=== PATIENT | male | born 1980 | race African-American/Black ===

== ENCOUNTER 2016-10-25 14:39 | Inpatient (IN) | payer SELFPAY ==
[~2016-10-25] VITALS: Ht 170.2 cm; Wt 66.7 kg
[2016-10-25] MEDS ORDERED: LORAZEPAM 2MG/ML CPJ IM STA (14:44)
[2016-10-25] MEDS ORDERED: OLANZAPINE 10 MG/VIAL IM STA (14:44)
[2016-10-25] MEDS ORDERED: SODIUM CHLORIDE 0.9% 1,000 ML IV ONE (14:47)
[2016-10-25] MEDS ORDERED: OLANZAPINE 10 MG/VIAL IM ONE (14:50)
[2016-10-25] MEDS ORDERED: LORAZEPAM 2MG/ML CPJ ONE (14:51)
[2016-10-25 15:24] LABS: HEMATOCRIT. 42.1 % (42.0-52.0); HEMOGLOBIN. 14.3 g/dL (14.0-18.0); MEAN CORPUSCULAR HEMOGLOBIN 32.2 pg (28.0-32.0); MEAN CORPUSCULAR VOLUME 95.3 fL (80.0-94.0); MEAN PLATELET VOLUME 8.3 fl (7.4-10.4); PLATELET 143 x1000/uL (130-400); RED BLOOD CELL COUNT 4.42 mill/uL (4.7-6.1); RED CELL DISTRIBUTION WIDTH 13.3 % (11.6-14.6)
[2016-10-25 15:33] LABS: CHLORIDE 110 mEq/L (98-107)
[2016-10-25 15:36] LABS: CARBON DIOXIDE 19 mEq/L (21-32); ETHANOL BLOOD < 10 mg/dL
[2016-10-25 15:39] LABS: CREATINE KINASE 545 IU/L (39-308)
[2016-10-25 15:56] LABS: ATYPICAL LYMPHOCYTES 2
[2016-10-25 15:58] LABS: PLATELET ESTIMATE NORMAL
[2016-10-25 16:11] LABS: CLARITY URINE CLEAR (CLEAR); COLOR URINE YELLOW (YELLOW); GLUCOSE URINE NEGATIVE (NEGATIVE); KETONES URINE 1+ (NEGATIVE); LEUKOCYTE ESTERASE URINE NEGATIVE (NEGATIVE); NITRITE URINE NEGATIVE (NEGATIVE); OCCULT BLOOD URINE NEGATIVE (NEGATIVE); PROTEIN URINE 1+ (NEGATIVE); SPECIFIC GRAVITY URINE 1.031 (1.005-1.030)
[2016-10-25] MEDS ORDERED: KCL 20MEQ/100ML PREMIX 100 ML IV ONE (16:15)
[2016-10-25] MEDS ORDERED: ASPIRIN 300MG SUPP PR ONE (16:15)
[2016-10-25 16:25] LABS: *AMPHETAMINES SCREEN URINE PRESUMTIVE POSITIVE (NEGATIVE); *BARBITURATES SCREEN URINE NEGATIVE (NEGATIVE); *BENZODIAZEPINES SCREEN URINE NEGATIVE (NEGATIVE); *COCAINE SCREEN URINE PRESUMTIVE POSITIVE (NEGATIVE); CANNABINOID URINE SCREEN PRESUMTIVE POSITIVE (NEGATIVE); METHADONE URINE SCREEN NEGATIVE (NEGATIVE); OPIATES URINE SCREEN NEGATIVE (NEGATIVE); PHENCYCLIDINE URINE SCREEN NEGATIVE (NEGATIVE)
[2016-10-25] MEDS ORDERED: DEXTROSE 5% WATER 1,000 ML IV STA (16:41)
[2016-10-25] MEDS: SODIUM BICARBONATE 150 MEQ in DEXTROSE 5% WATER 1,000 ML IV NR (17:46)
[2016-10-26] MEDS: SODIUM BICARBONATE 150 MEQ in DEXTROSE 5% WATER 1,000 ML IV NR (07:15)
[2016-10-26 10:00] VITALS: BP 141/92
[2016-10-26 10:10] VITALS: BP 141/92
[2016-10-26] MEDS ORDERED: MIRT30TA PO (10:17)
[2016-10-26 12:00] VITALS: BP 147/91
[2016-10-26] MEDS ORDERED: ONDANSETRON HCL 4MG/2ML VIAL IV PRN ×2 (15:45→17:15)
[2016-10-26] MEDS ORDERED: ACETAMINOPHEN 325MG TABLET PO PRN ×2 (15:45→17:15)
[2016-10-26 16:00] VITALS: BP 125/80
[2016-10-26] MEDS ORDERED: ACETAMINOPHEN 650MG/20.3ML UDC GT PRN (17:15)
[2016-10-26] MEDS ORDERED: ACETAMINOPHEN 650MG SUPP PR PRN (17:15)
[2016-10-26] MEDS ORDERED: IPRATROPIUM/ALBUTEROL 0.5-3(2.5)MG/3ML NEB INH PRN (17:15)
[2016-10-26] MEDS ORDERED: MAGNESIUM/ALUMINUM HYDROXIDE/SIMETHICONE 30ML UDC PO PRN (17:15)
[2016-10-26] MEDS: SODIUM CHLORIDE 0.9% 1,000 ML IV SCH (17:49)
[2016-10-26 18:14] LABS: BASOPHILS % 0.4 % (0.0-2.0); EOSINOPHILS % 0.3 % (0.0-5.0); HEMATOCRIT. 41.1 % (42.0-52.0); HEMOGLOBIN. 14.3 g/dL (14.0-18.0); LYMPHOCYTES % 12.5 % (20.0-50.0); MEAN CORPUSCULAR HEMOGLOBIN 32.4 pg (28.0-32.0); MEAN CORPUSCULAR VOLUME 93.5 fL (80.0-94.0); MEAN PLATELET VOLUME 8.5 fl (7.4-10.4); MONOCYTES % 7.6 % (2.0-8.0); NEUTROPHILS % 79.2 % (40.0-76.0); PLATELET 103 x1000/uL (130-400); RED CELL DISTRIBUTION WIDTH 13.6 % (11.6-14.6)
[2016-10-26 18:25] LABS: CARBON DIOXIDE 34 mEq/L (21-32); CHLORIDE 101 mEq/L (98-107)
[2016-10-26] MEDS ORDERED: CLONIDINE 0.2MG TABLET PO PRN ×2 (18:30)
[2016-10-26] MEDS ORDERED: POTASSIUM CHLORIDE 20MEQ TABLET SR PO NR (19:00)
[2016-10-26 19:21] LABS: CREATINE KINASE 25565 IU/L (39-308)
[2016-10-26 20:00] VITALS: BP 132/85
[2016-10-26] MEDS: SODIUM CHLORIDE 0.9% INJ 3ML FLUSH IVF SCH (20:44)
[2016-10-27] VITALS: BP 105/56
[2016-10-27 04:00] VITALS: BP 126/68
[2016-10-27 04:33] LABS: TROPONIN I 0.52 ng/mL (0.00-0.04)
[2016-10-27] MEDS: SODIUM CHLORIDE 0.9% INJ 3ML FLUSH IVF SCH ×2 (05:12→08:03)
[2016-10-27] MEDS: SODIUM CHLORIDE 0.9% 1,000 ML IV SCH (05:13)
[2016-10-27 06:17] LABS: BASOPHILS % 0.4 % (0.0-2.0); EOSINOPHILS % 0.3 % (0.0-5.0); HEMATOCRIT. 40.4 % (42.0-52.0); HEMOGLOBIN. 13.9 g/dL (14.0-18.0); LYMPHOCYTES % 19.9 % (20.0-50.0); MEAN CORPUSCULAR HEMOGLOBIN 32.6 pg (28.0-32.0); MEAN CORPUSCULAR VOLUME 94.4 fL (80.0-94.0); MEAN PLATELET VOLUME 8.7 fl (7.4-10.4); MONOCYTES % 9.8 % (2.0-8.0); NEUTROPHILS % 69.6 % (40.0-76.0); PLATELET 105 x1000/uL (130-400); RED BLOOD CELL COUNT 4.28 mill/uL (4.7-6.1); RED CELL DISTRIBUTION WIDTH 13.5 % (11.6-14.6)
[2016-10-27 07:01] LABS: CARBON DIOXIDE 30 mEq/L (21-32); CHLORIDE 106 mEq/L (98-107); HDL CHOLESTEROL 58 mg/dL (40-59); LDL CHOLESTEROL 88 mg/dL (5-100)
[2016-10-27 08:00] VITALS: BP 125/71
[2016-10-27] MEDS ORDERED: POTASSIUM CHLORIDE 20MEQ TABLET SR PO NR ×2 (08:00→17:00)
[2016-10-27] MEDS ORDERED: CLONIDINE 0.1MG TABLET PO PRN (09:15)
[2016-10-27] MEDS ORDERED: SODIUM CHLORIDE 0.45% 1,000 ML IV SCH (10:15)
[2016-10-27 10:33] LABS: TROPONIN I 0.38 ng/mL (0.00-0.04)
[2016-10-27 11:51] VITALS: BP 124/105
[2016-10-27 12:41] LABS: PHOSPHORUS 1.8 mg/dL (2.5-4.9)
[2016-10-27 12:43] VITALS: BP 124/85
== END 2016-10-27 13:20 | disposition home or self-care (01) | DRG 351 ==
LOC: EDBD 14:43 → ER 14:43 → 7WST 16:53 → ENRESERV 10-26 07:56
PROVIDERS: ADMIT Family Medicine; ATTEND Family Medicine
DX: M62.82 Rhabdomyolysis (principal); G92 Toxic encephalopathy; E46 Unspecified protein-calorie malnutrition; D69.6 Thrombocytopenia, unspecified; E87.6 Hypokalemia; N18.9 Chronic kidney disease, unspecified; T50.905A Adverse effect of unspecified drugs, medicaments and biological substances, initial encounter; R29.6 Repeated falls; R74.0 Nonspecific elevation of levels of transaminase and lactic acid dehydrogenase [LDH]; F15.10 Other stimulant abuse, uncomplicated; F14.10 Cocaine abuse, uncomplicated; F12.10 Cannabis abuse, uncomplicated; Z68.23 Body mass index [BMI] 23.0-23.9, adult; Z59.0 Homelessness
CPT/HCPCS: 36415; 70450; 71010; 72125; 80053; 80061; 80076; 80305; 80307; 80329; 81001; 82248; 82550; 83735; 84100; 84132; 84443; 84484; 85025; 85379; 93005; 93306; 96361; 96365; 96366; 96372; 99285; G0482; J2060; J3480; J3490; J7030; J7070